=== PATIENT | female | born 1985 | race Caucasian/White ===

== ENCOUNTER → 2021-03-23 04:00 | Observation (INO) | payer MEDICAID ==
[~2021-03-23] VITALS: Ht 162.6 cm; Wt 113.0 kg
[2021-03-23 01:41] LABS: CLARITY URINE TURBID (CLEAR); KETONES URINE TRACE (NEGATIVE); LEUKOCYTE ESTERASE URINE TRACE (NEGATIVE); NITRITE URINE NEGATIVE (NEGATIVE); OCCULT BLOOD URINE 2+ (NEGATIVE); PROTEIN URINE 2+ (NEGATIVE); SPECIFIC GRAVITY URINE 1.029 (1.005-1.030)
[2021-03-23 01:55] LABS: *BARBITURATES SCREEN URINE NEGATIVE (NEGATIVE)
[2021-03-23 01:56] LABS: *AMPHETAMINES SCREEN URINE NEGATIVE (NEGATIVE); *BENZODIAZEPINES SCREEN URINE NEGATIVE (NEGATIVE); *COCAINE SCREEN URINE NEGATIVE (NEGATIVE); METHADONE URINE SCREEN NEGATIVE (NEGATIVE); OPIATES URINE SCREEN NEGATIVE (NEGATIVE); PHENCYCLIDINE URINE SCREEN NEGATIVE (NEGATIVE)
[2021-03-23 01:57] LABS: CANNABINOID URINE SCREEN NEGATIVE (NEGATIVE); COLOR URINE DARK YELLOW (YELLOW)
[~2021-03-23 04:00] MED LIST: DIPHENHYDRAMINE 25MG CAPSULE PO ONE; PNV1TABL76 PO
[2021-03-23 07:26] LABS: BASOPHILS % 0.5 % (0.0-2.0); EOSINOPHILS % 1.8 % (0.0-5.0); HEMATOCRIT. 35.4 % (36.0-48.0); HEMOGLOBIN. 11.5 g/dL (12.0-16.0); LYMPHOCYTES % 18.3 % (20.0-50.0); MEAN CORPUSCULAR HEMOGLOBIN 25.3 pg (28.0-32.0); MEAN PLATELET VOLUME 10.8 fl (7.4-10.4); MONOCYTES % 4.9 % (2.0-8.0); NEUTROPHILS % 74.5 % (40.0-76.0); PLATELET 204 x1000/uL (130-400); RED BLOOD CELL COUNT 4.54 mill/uL (4.2-5.4); RED CELL DISTRIBUTION WIDTH 14.6 % (11.6-14.6)
[2021-03-23 07:28] LABS: CHLORIDE 109 mEq/L (98-107)
[2021-03-23 08:03] VITALS: BP 116/84
== END | disposition home or self-care (01) ==
LOC: 8 EST LDRP 00:02 → UNDOADMOB 00:02 → 8 EST LDRP 00:09 → EDSTATUS 04:19 → ER 04:19 → EDSTATUS 09:38
PROVIDERS: ADMIT Specialist; ATTEND Specialist
DX: O99.891 Other specified diseases and conditions complicating pregnancy (principal); M54.5 Low back pain; O26.893 Other specified pregnancy related conditions, third trimester; R10.30 Lower abdominal pain, unspecified; R35.0 Frequency of micturition; Z3A.36 36 weeks gestation of pregnancy
CPT/HCPCS: 36415; 59025; 76705; 76805; 76818; 80053; 80305; 81003; 82962; 85025; G0378; Q0163; 99281; 99285